=== PATIENT | male | born 1985 | race Two or more races ===

== ENCOUNTER 2017-10-24 21:57 | Inpatient (IN) | payer SELFPAY ==
[2017-10-24 22:04] VITALS: BMI 21.1
--- NOTE | 2017-10-24 22:16 | HP ---
COWS - Scale Resting Pulse: 0= [place] 80 or Below Sweatin=Flushed/Facial Moisture Restless Observation: 1= Difficult to Sit Still Pupil Size: 1= Pupils >than Normal Bone or Joint Aches: 2= Severe Diffuse Aches Runny Nose/ Eye Tearin= Runny Nose/Eyes GI Upset > 30mins: 1= Stomach Cramp Tremor Observation: 4= Gross Tremor/Twitching Yawning Observation: 1= 1-2x During Session Anxiety or Irritability: 4=Extreme Anxiety Goose Flesh Skin: 3=Piloerection COWS Score: 21 CIWA Score - CIWA Score Nausea/Vomitin-No Nausea/No Vomiting Muscle Tremors: 4-Moderate,w/Arms Extend Anxiety: 4-Mod. Anxious/Guarded Agitation: 4-Moderately Restless Paroxysmal Sweats: 2 Orientation: 0-Oriented Tacttile Disturbances: 0-None Auditory Disturbances: 0-None Visual Disturbances: 0-None Headache: 4-Moderately Severe CIWA-Ar Total Score: 18 Admission ROS S - HPI Chief Complaint: Alcohol and heroin withdrawal symptoms Allergies/Adverse Reactions: Allergies Allergy/AdvReac Type Severity Reaction Status Date / Time No Known Allergies Allergy Verified 10/24/17 22:11 History of Present Illness: 32 years old male with a long history of alcohol and 2 years history of heroin dependence is admitted to detox. Patient reports previous detox treatment and 6 months of sobriety. He denies past medical history and suicidal ideation at this time. Patient states , " My goal is to achieve long-term sobriety." Exam Limitations: No Limitations - Ebola screening Have you traveled outside of the country in the last 21 days: No Have you had contact with anyone from an Ebola affected area: No Have you been sick,other than usual withdrawal symptoms: No Do you have a fever: No - Review of Systems Constitutional: Chills, Diaphoresis, Malaise, Night Sweats, Changes in sleep EENT: reports: Nose Congestion, Sinus Pressure Respiratory: reports: Productive cough (white phlegm) Cardiac: reports: No Symptoms Reported GI: reports: Poor Appetite, Poor Fluid Intake, Abdominal cramping : reports: No Symptoms Reported Musculoskeletal: reports: Back Pain, Muscle Pain, Muscle Weakness, Neck Pain Integumentary: reports: Dryness, Flushing, Sweating, Other (bilateral hand tatoo ) Neuro: reports: Headache, Tingling, Tremors Endocrine: reports: No Symptoms Reported Hematology: reports: No Symptoms Reported Psychiatric: reports: Mood/Affect Appropiate, Orientated x3, Anxious, Depressed Other Systems: Reviewed and Negative Patient History - Patient Medical History Hx Anemia: No Hx Asthma: No Hx Chronic Obstructive Pulmonary Disease (COPD): No Hx Cancer: No Hx Cardiac Disorders: No Hx Congestive Heart Failure: No Hx Hypertension: No Hx Hypercholesterolemia: No Hx Pacemaker: No HX Cerebrovascular Accident: No Hx Seizures: No Hx Dementia: No Hx Diabetes: No Hx Gastrointestinal Disorders: No Hx Liver Disease: No Hx Genitourinary Disorders: No Hx Sexually Transmitted Disorders: No Hx Renal Disease (ESRD): No Hx Thyroid Disease: No Hx Human Immunodeficiency Virus (HIV): No (Negative 2015) Hx Hepatitis C: No (Negative 2016) Hx Depression: Yes Hx Suicide Attempt: No (Denies suicidal ideation) Hx Bipolar Disorder: No Hx Schizophrenia: No - Patient Surgical History Past Surgical History: No - PPD History Previous Implant?: No Implanted On Prior R Admission?: No PPD to be Administered?: Yes - Reproductive History Patient is a Female of Child Bearing Age (11 -55 yrs old): No (Male) - Smoking Cessation Smoking history: Current every day smoker Have you smoked in the past 12 months: Yes Aproximately how many cigarettes per day: 20 Hx Chewing Tobacco Use: No Initiated information on smoking cessation: Yes 'Breaking Loose' booklet given: 10/24/17 - Substance & Tx. History Hx Alcohol Use: Yes (Vodka) Hx Substance Use: Yes (Heroin, Marijuana) Substance Use Type: Alcohol, Heroin, Marijuana Hx Substance Use Treatment: Yes ([place], [place] 05/2017) - Substances Abused Alcohol Route: Oral Frequency: 3-6 times per week Amount used: Vodka 1-8 pint Age of first use: 16 Date of Last Use: 10/23/17 Heroin Route: Injection Frequency: Daily Amount used: 10 bags Age of first use: 29 Date of Last Use: 10/23/17 Marijuana/Hashish Route: Smoking Frequency: Daily Amount used: 1-8 oz. Age of first use: 16 Date of Last Use: 10/23/17 Family Disease History - Family Disease History Family History: Denies Admission Physical Exam BHS - Vital Signs Vital Signs: Vital Signs - 24 hr 10/24/17 22:02 Temperature 98.0 F Pulse Rate 76 Respiratory 18 Rate Blood Pressure 160/90 - Physical General Appearance: Yes: Moderate Distress, Tremorous, Irritable, Sweating, Anxious HEENTM: Yes: Normal ENT Inspection, Normal Voice, KASHIF, Other (right nose bruises and redness) Respiratory: Yes: Lungs Clear, No Respiratory Distress Neck: Yes: Supple, Other (left side tatoo) Breast: Yes: Breast Exam Deferred Cardiology: Yes: Regular Rhythm, Regular Rate, S1, S2, Other (tatoo toupper chest wall) Abdominal: Yes: Normal Bowel Sounds, Soft Genitourinary: Yes: Within Normal Limits Back: Yes: Within Normal Limits Musculoskeletal: Yes: Back pain, Muscle Pain, Muscle weakness Extremities: Yes: Tremors, Other (bilateral hand tatoos) Neurological: Yes: Fully Oriented, Alert, Normal Response Integumentary: Yes: Dry, Track Hernandez (both hands) Lymphatic: Yes: Within Normal Limits - Diagnostic (1) Opioid dependence with withdrawal Current Visit: Yes Status: Chronic (2) Alcohol dependence with uncomplicated withdrawal Current Visit: Yes Status: Chronic (3) Cannabis dependence Current Visit: Yes Status: Chronic (4) Nicotine dependence Current Visit: Yes Status: Chronic (5) Depression Current Visit: Yes Status: Chronic Cleared for Admission [facility] - Detox or Rehab [facility] Level of Care: Medically Managed Detox Regimen/Protocol: Methadone/Librium [facility] Breath Alcohol Content Breath Alcohol Content: 0 Urine Drug Screen - Results Drug Screen Negative: No Urine Drug Screen Results: THC-Marijuana, OPI-Opiates
[2017-10-24] MEDS ORDERED: MAGNESIUM CITRATE 300 ML BOTTLE PO PRN (22:38)
[2017-10-24] MEDS ORDERED: MAGNESIUM HYDROX 2400MG/30ML ORAL SUSPENSION 30 ML CUP PO PRN (22:38)
[2017-10-24] MEDS ORDERED: P-EPHED 60MG/TRIPROLIDI 2.5MG TABLET PO PRN (22:38)
[2017-10-24] MEDS ORDERED: METHADONE HCL 10 MG TABLET (FOR DETOX USE ONLY) PO ONE ×2 (22:38→23:00)
[2017-10-24] MEDS ORDERED: chlordiazePOXIDE HCL 25 MG CAPSULE PO PRN (22:38)
[2017-10-24] MEDS ORDERED: NICOTINE POLACRILEX 2 MG GUM BC PRN (22:38)
[2017-10-24] MEDS ORDERED: hydrOXYzine PAMOATE 50 MG CAPSULE (FP) PO PRN (22:38)
[2017-10-24] MEDS ORDERED: guaiFENesin/D-METHORPHAN HB 10 ML UNIT-DOSE CUPS PO PRN (22:38)
[2017-10-24] MEDS ORDERED: MAG HYDROX/AL HYDROX/SIMETH 30 ML UNIT-DOSE CUP PO PRN (22:38)
[2017-10-24] MEDS ORDERED: IBUPROFEN 400 MG TABLET (FP) PO PRN (22:38)
[2017-10-24] MEDS ORDERED: MENTHOL/PHENOL 1 EACH UD MM PRN (22:38)
[2017-10-24] MEDS ORDERED: LOPERAMIDE HCL 2 MG CAPSULE PO PRN (22:38)
[2017-10-24] MEDS ORDERED: ACETAMINOPHEN 325 MG TABLET (FP) PO PRN (22:38)
[2017-10-24] MEDS: chlordiazePOXIDE HCL 25 MG CAPSULE PO SCH (23:48)
[2017-10-25 01:59] LABS: URINE APPEARANCE SLCLOUDY; URINE BILIRUBIN NEGATIVE (NEGATIVE); URINE BLOOD NEGATIVE (NEGATIVE); URINE COLOR LTYELLOW; URINE GLUCOSE (UA) NEGATIVE (NEGATIVE); URINE KETONE NEGATIVE (NEGATIVE); URINE NITRITE NEGATIVE (NEGATIVE); URINE PROTEIN NEGATIVE (NEGATIVE)
[2017-10-25] MEDS: chlordiazePOXIDE HCL 25 MG CAPSULE PO SCH ×2 (05:59→10:20)
[2017-10-25] MEDS ORDERED: METHADONE HCL 10 MG TABLET (FOR DETOX USE ONLY) PO SCH (10:00)
[2017-10-25 10:11] LABS: MCH 28.9 pg (25.7-33.7); MCHC 32.4 g/dl (32.0-35.9); MEAN CELL VOLUME 89.4 fl (80-96); MEAN PLT VOLUME 9.3 fl (7.5-11.1); PLATELET COUNT 279 K/MM3 (134-434); RDW 14.4 % (11.9-15.9)
[2017-10-25] MEDS: PRENATAL VITAMINS W/ FOLIC ACID TABLET (FP) PO SCH (10:20)
[2017-10-25] MEDS: NICOTINE 14 MG/24 HOURS TOPICAL PATCH TD SCH (10:21)
[2017-10-25 10:35] LABS: SICKLE CELL SCREEN NEGATIVE (NEGATIVE)
[2017-10-25 10:52] LABS: ALBUMIN 3.6 g/dl (3.4-5.0); ALK PHOS 76 U/L (45-117); ANION GAP 8 (8-16); BILIRUBIN,TOTAL 0.3 mg/dL (0.2-1.0); CALCIUM 8.5 mg/dL (8.5-10.1); CO2 26 mmol/L (21-32); CREATININE 1.3 mg/dL (0.7-1.3); GLUCOSE,RANDOM 93 mg/dL (74-106); SGOT/AST 16 U/L (15-37); SGPT/ALT 17 U/L (12-78); TOT PROT 7.2 g/dl (6.4-8.2)
--- NOTE | 2017-10-25 11:06 | PN ---
[facility] CIWA - CIWA Score Nausea/Vomitin Muscle Tremors: 3 Anxiety: 3 Agitation: 2 Paroxysmal Sweats: 1-Minimal Palms Moist Orientation: 0-Oriented Tacttile Disturbances: 1-Very Mild Itch/Numbness Auditory Disturbances: 1-Very Mild Visual Disturbances: 0-None Headache: 2-Mild CIWA-Ar Total Score: 16 BHS COWS - Scale Resting Pulse: 0= [place] 80 or Below Sweatin= Chills/Flushing Restless Observation: 3= Extraneous Movement Pupil Size: 1= Pupils >than Normal Bone or Joint Aches: 2= Severe Diffuse Aches Runny Nose/ Eye Tearin= Runny Nose/Eyes GI Upset > 30mins: 2= Nausea/Diarrhea Tremor Observation of Outstretched Hands: 2= Slight Tremor Visible Yawning Observation: 1= 1-2x During Session Anxiety or Irritability: 2=Irritable/Anxious Goose Flesh Skin: 0=Smooth Skin COWS Score: 16 [facility] Progress Note (SOAP) Subjective: alert,irritable,anxious,interrupted sleep,pain in the body and back,tremor, irritation right facial area Objective: 10/25/17 11:04 Vital Signs Temperature 98.2 F 10/25/17 06:02 Pulse Rate 63 10/25/17 06:02 Respiratory Rate 16 10/25/17 06:02 Blood Pressure 133/76 10/25/17 06:02 O2 Sat by Pulse Oximetry (%) ekg nsr,normal ecg Laboratory Last Values WBC 5.0 K/mm3 (4.0-10.0) 10/25/17 07:45 RBC 4.26 M/mm3 (4.00-5.60) 10/25/17 07:45 Hgb 12.3 GM/dL (11.7-16.9) 10/25/17 07:45 Hct 38.0 % (35.4-49) 10/25/17 07:45 MCV 89.4 fl (80-96) 10/25/17 07:45 MCH 28.9 pg (25.7-33.7) 10/25/17 07:45 MCHC 32.4 g/dl (32.0-35.9) 10/25/17 07:45 RDW 14.4 % (11.9-15.9) 10/25/17 07:45 Plt Count 279 K/MM3 (134-434) 10/25/17 07:45 MPV 9.3 fl (7.5-11.1) 10/25/17 07:45 Sickle Cell Screen Negative (NEGATIVE) 10/25/17 07:45 Sodium 137 mmol/L (136-145) 10/25/17 07:45 Potassium 4.1 mmol/L (3.5-5.1) 10/25/17 07:45 Chloride 103 mmol/L (98-107) 10/25/17 07:45 Carbon Dioxide 26 mmol/L (21-32) 10/25/17 07:45 Anion Gap 8 (8-16) 10/25/17 07:45 BUN 6 mg/dL (7-18) L 10/25/17 07:45 Creatinine 1.3 mg/dL (0.7-1.3) 10/25/17 07:45 Creat Clearance w eGFR > 60 (>60) 10/25/17 07:45 Random Glucose 93 mg/dL (74-106) 10/25/17 07:45 Calcium 8.5 mg/dL (8.5-10.1) 10/25/17 07:45 Total Bilirubin 0.3 mg/dL (0.2-1.0) 10/25/17 07:45 AST 16 U/L (15-37) 10/25/17 07:45 ALT 17 U/L (12-78) 10/25/17 07:45 Alkaline Phosphatase 76 U/L (45-117) 10/25/17 07:45 Total Protein 7.2 g/dl (6.4-8.2) 10/25/17 07:45 Albumin 3.6 g/dl (3.4-5.0) 10/25/17 07:45 Urine Color Ltyellow 10/24/17 23:43 Urine Appearance Slcloudy 10/24/17 23:43 Urine pH 7.0 (5.0-8.0) 10/24/17 23:43 Ur Specific [place] 1.005 (1.001-1.035) 10/24/17 23:43 Urine Protein Negative (NEGATIVE) 10/24/17 23:43 Urine Glucose (UA) Negative (NEGATIVE) 10/24/17 23:43 Urine Ketones Negative (NEGATIVE) 10/24/17 23:43 Urine Blood Negative (NEGATIVE) 10/24/17 23:43 Urine Nitrite Negative (NEGATIVE) 10/24/17 23:43 Urine Bilirubin Negative (NEGATIVE) 10/24/17 23:43 Urine Urobilinogen 2.0 mg/dL (0.2-1.0) 10/24/17 23:43 10/25/17 11:06 labs pending Assessment: 10/25/17 11:06 withdrawal symptom Plan: continue detox,patient requested valium regimen instead of librium
[2017-10-25] MEDS ORDERED: CYCLOBENZAPRINE HCL 10 MG TABLET (FP) PO PRN (11:12)
[2017-10-25] MEDS ORDERED: BACITRACIN 15 GM TUBE TOPICAL OINTMENT TP SCH (11:15)
[2017-10-25 11:31] LABS: URINE LEUK ESTERASE Negative (NEGATIVE)
[2017-10-25] MEDS: diazePAM 5 MG TABLET PO PRN ×2 (12:20→17:48)
[2017-10-25] MEDS ORDERED: diazePAM 5 MG TABLET PO ONE (13:00)
--- NOTE | 2017-10-25 14:08 | CONSULT ---
[facility] Psychiatric Consult - Data Date of interview: 10/25/17 Admission source: [facility] Identifying data: First admission to [facility] for this 32 y/o AA male seeking detox treatment on for heroin,marihuana and alcohol dependence.Patient is single,father of one,homeless,unemployed and deprived of financial assistance. Substance Abuse History: Patient admits to active use of cannabis,heroin and alcohol.See [facility] report for details : Smoking history: Current every day smoker. Have you smoked in the past 12 months: Yes. Aproximately how many cigarettes per day: 20. Hx Chewing Tobacco Use: No. Initiated information on smoking cessation: Yes. 'Breaking Loose' booklet given: 10/24/17. - Substance & Tx. History. Hx Alcohol Use: Yes (Vodka). Hx Substance Use: Yes (Heroin, Marijuana). Substance Use Type: Alcohol, Heroin, Marijuana. Hx Substance Use Treatment: Yes ([place], [place] 05/2017). - Substances Abused. Alcohol. Route: Oral. Frequency: 3-6 times per week. Amount used : Vodka 1-8 pint. Age of first use: 16. Date of Last Use: 10/23/17. Heroin. Route: Injection. Frequency: Daily. Amount used: 10 bags. Age of first use: 29. Date of Last Use: 10/23/17. Marijuana/Hashish. Route: Smoking. Frequency: Daily. Amount used: 1-8 oz. Age of first use: 16. Date of Last Use: 10/23/17 Medical History: Patient endorses good general health. Psychiatric History: No reported history of psychiatric hospitalizations.Used to be prescribed seroquel by a general practitioner in [place].Diagnosed with MDD and Anxiety Disorder.No OPD care (just relocated to [facility]).Mr Santos denies history of suicide attempts. Physical/Sexual Abuse/Trauma History: Patient denies. Additional Comment: Urine Drug Screen Results: THC-Marijuana, OPI-Opiates.Noted. Mental Status Exam - Mental Status Exam Alert and Oriented to: Time, Place, Person Cognitive Function: Good Patient Appearance: Well Groomed (covered with tattoos) Mood: Hopeful, Euthymic Affect: Normal Range Patient Behavior: Fatigued, Appropriate, Cooperative Speech Pattern: Clear Voice Loudness: Normal Thought Process: Goal Oriented Thought Disorder: Not Present Hallucinations: Denies Suicidal Ideation: Denies Homicidal Ideation: Denies Insight/Judgement: Poor Sleep: Poorly, Difficulty falling asleep (wants seroquel) Appetite: Good Muscle strength/Tone: Normal Gait/Station: Normal Psychiatric Findings - Problem List ([place] 1, 2,3) (1) Opioid dependence with withdrawal Current Visit: Yes Status: Acute (2) Alcohol dependence with uncomplicated withdrawal Current Visit: Yes Status: Acute (3) Cannabis dependence Current Visit: Yes Status: Acute (4) Nicotine dependence Current Visit: Yes Status: Acute (5) Substance induced mood disorder Current Visit: Yes Status: Acute (6) Insomnia Current Visit: Yes Status: Acute - Initial Treatment Plan Initial Treatment Plan: Psychoeducation.Sleep hygiene.Detoxification.Seroquel 100 mg po hs.Side effects/benefits discussed with the patient.He agrees with the patient.Observation.
[2017-10-25] MEDS: diazePAM 5 MG TABLET PO SCH ×2 (14:24→22:23)
[2017-10-25] MEDS: THIAMINE HCL 100 MG TABLET (FP) PO SCH (22:22)
[2017-10-25] MEDS: cloNIDine HCL 0.1 MG TABLET PO SCH (22:22)
[2017-10-25] MEDS: QUEtiapine FUMARATE 100 MG TABLET (FP) PO SCH (22:23)
[2017-10-25] MEDS: BACITRACIN 0.9 GM PACKET TP SCH (22:23)
[2017-10-25] MEDS ORDERED: chlordiazePOXIDE HCL 25 MG CAPSULE PO SCH (23:00)
[2017-10-26] MEDS: diazePAM 5 MG TABLET PO SCH ×3 (04:59→22:04)
--- NOTE | 2017-10-26 09:27 | PN ---
[facility] CIWA - CIWA Score Nausea/Vomitin Muscle Tremors: 3 Anxiety: 3 Agitation: 2 Paroxysmal Sweats: 1-Minimal Palms Moist Orientation: 0-Oriented Tacttile Disturbances: 1-Very Mild Itch/Numbness Auditory Disturbances: 1-Very Mild Visual Disturbances: 0-None Headache: 2-Mild CIWA-Ar Total Score: 16 BHS COWS - Scale Resting Pulse: 1= [place] 81-100 Sweatin= Chills/Flushing Restless Observation: 3= Extraneous Movement Pupil Size: 1= Pupils >than Normal Bone or Joint Aches: 2= Severe Diffuse Aches Runny Nose/ Eye Tearin= Runny Nose/Eyes GI Upset > 30mins: 3= Vomiting/Diarrhea Tremor Observation of Outstretched Hands: 2= Slight Tremor Visible Yawning Observation: 1= 1-2x During Session Anxiety or Irritability: 2=Irritable/Anxious Goose Flesh Skin: 0=Smooth Skin COWS Score: 18 S Progress Note (SOAP) Subjective: alert,irritable,anxious,interrupted sleep,tremor,pain in the body and back Objective: 10/26/17 09:25 Vital Signs Temperature 97.9 F 10/26/17 05:59 Pulse Rate 95 H 10/26/17 05:59 Respiratory Rate 20 10/26/17 05:59 Blood Pressure 124/80 10/26/17 05:59 O2 Sat by Pulse Oximetry (%) Laboratory Last Values WBC 5.0 K/mm3 (4.0-10.0) 10/25/17 07:45 RBC 4.26 M/mm3 (4.00-5.60) 10/25/17 07:45 Hgb 12.3 GM/dL (11.7-16.9) 10/25/17 07:45 Hct 38.0 % (35.4-49) 10/25/17 07:45 MCV 89.4 fl (80-96) 10/25/17 07:45 MCH 28.9 pg (25.7-33.7) 10/25/17 07:45 MCHC 32.4 g/dl (32.0-35.9) 10/25/17 07:45 RDW 14.4 % (11.9-15.9) 10/25/17 07:45 Plt Count 279 K/MM3 (134-434) 10/25/17 07:45 MPV 9.3 fl (7.5-11.1) 10/25/17 07:45 Manual Slide Review No Result Required. 10/25/17 07:45 Sickle Cell Screen Negative (NEGATIVE) 10/25/17 07:45 Sodium 137 mmol/L (136-145) 10/25/17 07:45 Potassium 4.1 mmol/L (3.5-5.1) 10/25/17 07:45 Chloride 103 mmol/L (98-107) 10/25/17 07:45 Carbon Dioxide 26 mmol/L (21-32) 10/25/17 07:45 Anion Gap 8 (8-16) 10/25/17 07:45 BUN 6 mg/dL (7-18) L 10/25/17 07:45 Creatinine 1.3 mg/dL (0.7-1.3) 10/25/17 07:45 Creat Clearance w eGFR > 60 (>60) 10/25/17 07:45 Random Glucose 93 mg/dL (74-106) 10/25/17 07:45 Calcium 8.5 mg/dL (8.5-10.1) 10/25/17 07:45 Total Bilirubin 0.3 mg/dL (0.2-1.0) 10/25/17 07:45 AST 16 U/L (15-37) 10/25/17 07:45 ALT 17 U/L (12-78) 10/25/17 07:45 Alkaline Phosphatase 76 U/L (45-117) 10/25/17 07:45 Total Protein 7.2 g/dl (6.4-8.2) 10/25/17 07:45 Albumin 3.6 g/dl (3.4-5.0) 10/25/17 07:45 Urine Color Ltyellow 10/24/17 23:43 Urine Appearance Slcloudy 10/24/17 23:43 Urine pH 7.0 (5.0-8.0) 10/24/17 23:43 Ur Specific [place] 1.005 (1.001-1.035) 10/24/17 23:43 Urine Protein Negative (NEGATIVE) 10/24/17 23:43 Urine Glucose (UA) Negative (NEGATIVE) 10/24/17 23:43 Urine Ketones Negative (NEGATIVE) 10/24/17 23:43 Urine Blood Negative (NEGATIVE) 10/24/17 23:43 Urine Nitrite Negative (NEGATIVE) 10/24/17 23:43 Urine Bilirubin Negative (NEGATIVE) 10/24/17 23:43 Urine Urobilinogen 2.0 mg/dL (0.2-1.0) 10/24/17 23:43 Ur Leukocyte Esterase Negative (NEGATIVE) 10/24/17 23:43 RPR Titer Nonreactive (NONREACTIVE) 10/25/17 07:45 Assessment: 10/26/17 09:26 withdrawal symptom Plan: continue detox
[2017-10-26] MEDS ORDERED: METHADONE HCL 5 MG TABLET (FOR DETOX USE ONLY) PO SCH (10:00)
[2017-10-26] MEDS: diazePAM 5 MG TABLET PO PRN (10:14)
[2017-10-26] MEDS: cloNIDine HCL 0.1 MG TABLET PO SCH ×2 (10:14→22:05)
[2017-10-26] MEDS: PRENATAL VITAMINS W/ FOLIC ACID TABLET (FP) PO SCH (10:14)
[2017-10-26] MEDS: NICOTINE 14 MG/24 HOURS TOPICAL PATCH TD SCH (10:15)
[2017-10-26] MEDS: BACITRACIN 0.9 GM PACKET TP SCH ×2 (10:16→22:04)
[2017-10-26] MEDS: QUEtiapine FUMARATE 100 MG TABLET (FP) PO SCH (22:04)
[2017-10-26] MEDS: THIAMINE HCL 100 MG TABLET (FP) PO SCH (22:04)
[2017-10-26] MEDS ORDERED: chlordiazePOXIDE 5 MG CAPSULE PO SCH (23:00)
[2017-10-27 09:26] VITALS: BP 136/89; PULSE 86; TEMP 99.3
[2017-10-27] MEDS ORDERED: diazePAM 5 MG TABLET PO SCH (10:00)
--- NOTE | 2017-10-27 10:15 | PN ---
[facility] Progress Note Note: pt was harassing and verbally threatening another patient (female). pt was told by medical and counselor that this behavior is unacceptable however to have him complete his detox he will be sent to an all male unit and pt agreed. pt was sent down to [facility] for completion.
--- NOTE | 2017-10-27 10:16 | DS ---
[facility] Detox Discharge Summary Admission Date: 10/24/17 Discharge Date: 10/27/17 - History Present History: Alcohol Dependence, Cannabis Dependence, Opioid Dependence - Physical Exam Results Vital Signs: Vital Signs Temperature 99.3 F 10/27/17 09:25 Pulse Rate 86 10/27/17 09:25 Respiratory Rate 18 10/27/17 09:25 Blood Pressure 136/89 10/27/17 09:25 O2 Sat by Pulse Oximetry (%) - Medication Discharge Medications: Ambulatory Orders Quetiapine Fumarate [Seroquel -] 100 mg PO BID 10/24/17 Quetiapine Fumarate [Seroquel -] 200 mg PO HS #30 tab 10/25/17 - AMA Did Patient Leave Against Medical Advice: No (pt sent to [facility])
[2017-10-27] MEDS ORDERED: chlordiazePOXIDE HCL 10 MG CAPSULE PO SCH (23:00)
--- NOTE | 2017-10-28 01:04 | EKG ---
Test Reason : Blood Pressure : / mmHG Vent. Rate : 071 BPM Atrial Rate : 071 BPM P-R Int : 174 ms QRS Dur : 088 ms QT Int : 372 ms P-R-T Axes : 060 046 044 degrees QTc Int : 404 ms NORMAL SINUS RHYTHM NORMAL ECG NO PREVIOUS ECGS AVAILABLE Confirmed by JIM HANEY MD ([id number]) on 10/28/2017 1:04:08 AM Referred By: Confirmed By:JIM HANEY MD
[2017-10-28] MEDS ORDERED: METHADONE HCL 10 MG TABLET (FOR DETOX USE ONLY) PO SCH (10:00)
[2017-10-29] MEDS ORDERED: METHADONE HCL 5 MG TABLET (FOR DETOX USE ONLY) PO SCH (06:00)
[2017-10-29] MEDS ORDERED: diazePAM 5 MG TABLET PO SCH (10:00)
== END 2017-10-27 09:53 | disposition left against medical advice (07) | DRG 770 ==
LOC: YASAS 21:57 → Y6N 22:46
PROVIDERS: ADMIT Internal Medicine; ATTEND Internal Medicine
PROC: HZ2ZZZZ Detoxification Services for Substance Abuse Treatment (ICD-10-PCS; principal; 2017-10-24)
DX: F11.23 Opioid dependence with withdrawal (principal); F10.230 Alcohol dependence with withdrawal, uncomplicated; F12.20 Cannabis dependence, uncomplicated; F17.210 Nicotine dependence, cigarettes, uncomplicated; F32.9 Major depressive disorder, single episode, unspecified; F19.24 Other psychoactive substance dependence with psychoactive substance-induced mood disorder; G47.00 Insomnia, unspecified
CPT/HCPCS: 36415; 80053; 81003; 85027; 85660; 86593; 93005; 93010

== ENCOUNTER 2018-11-02 11:58 | Inpatient (IN) | payer OTHER ==
[2018-11-02 15:59] VITALS: BMI 20.7
--- NOTE | 2018-11-02 17:00 | HP ---
COWS - Scale Resting Pulse: 1= [place] 81-100 Sweatin= Chills/Flushing Restless Observation: 1= Difficult to Sit Still Pupil Size: 2= Moderately Dilated Bone or Joint Aches: 2= Severe Diffuse Aches Runny Nose/ Eye Tearin= Nasal Congestion GI Upset > 30mins: 3= Vomiting/Diarrhea Tremor Observation: 2= Slight Tremor Visible Yawning Observation: 0= None Anxiety or Irritability: 2=Irritable/Anxious Goose Flesh Skin: 0=Smooth Skin COWS Score: 15 CIWA Score Nausea/Vomitin Muscle Tremors: 2 Anxiety: 2 Agitation: 2 Paroxysmal Sweats: 2 Orientation: 0-Oriented Tacttile Disturbances: 0-None Auditory Disturbances: 0-None Visual Disturbances: 0-None Headache: 2-Mild CIWA-Ar Total Score: 13 - Admission Criteria [facility] Guidelines: Admission for Medically Managed Detox: Requires at least one of the followin. CIWA greater than 12 2. Seizures within the past 24 hours 3. Delirium tremens within the past 24 hours 4. Hallucinations within the past 24 hours 5. Acute intervention needed for co occurring medical disorder 6. Acute intervention needed for co occurring psychiatric disorder 7. Severe withdrawal that cannot be handled at a lower level of care (continued vomiting, continued diarrhea, abnormal vital signs) requiring intravenous medication and/or fluids 8. Admission ROS [facility] Chief Complaint: PATIENT PRESENTS FOR ETOH/HEROIN WITHDRAWAL SX. Allergies/Adverse Reactions: Allergies Allergy/AdvReac Type Severity Reaction Status Date / Time No Known Allergies Allergy Verified 11/02/18 16:44 History of Present Illness: PATIENT PRESENTS FOR ETOH/HEROIN WITHDRAWAL SYMPTOMS. PATIENT STARTED DRINKING AT AGE 11, DRINKS UP TO 12 PACK OF BEER AND 3 MIXED DRINKS DAILY, LAST DRINK THIS AM. DRINKS FIRST UPON AWAKENING TO [employer]ES. PATIENT ALSO INJECTS 10 BAGS OF HEROIN DAILY, LAST TIME HE INJECTED WAS THIS MORNING. PATIENT BEGAN INJECTING HEROIN AT AGE 28. DENIES H/O SEIZURES, FALLS AND OVERDOSE. HAS HAD ADMISSION TO DETOX HERE AT [facility], LAST ADMISSION ONE YEAR AGO. PATIENT STATES HE USES CLEAN NEEDLES. PMH INCLUDES TOBACCO USE, 1PPD. DENIES SI/HI AND SUICIDE ATTEMPTS. - Ebola screening Have you traveled outside of the country in the last 21 days: No Have you had contact with anyone from an Ebola affected area: No Have you been sick,other than usual withdrawal symptoms: No Do you have a fever: No - Review of Systems Constitutional: Chills, Night Sweats, Changes in sleep EENT: reports: Nose Congestion Respiratory: reports: No Symptoms reported Cardiac: reports: No Symptoms Reported GI: reports: Nausea, Poor Appetite, Poor Fluid Intake, Vomiting, Abdominal cramping : reports: Other (RETENTION) Musculoskeletal: reports: Back Pain, Muscle Pain Integumentary: reports: Sweating Neuro: reports: Headache, Tremors Endocrine: reports: Unexplained Weight Loss Hematology: reports: No Symptoms Reported Psychiatric: reports: Orientated x3, Anxious Patient History - Patient Medical History Hx Anemia: No Hx Asthma: No Hx Chronic Obstructive Pulmonary Disease (COPD): No Hx Cancer: No Hx Cardiac Disorders: No Hx Congestive Heart Failure: No Hx Hypertension: No Hx Hypercholesterolemia: No Hx Pacemaker: No HX Cerebrovascular Accident: No Hx Seizures: No Hx Dementia: No Hx Diabetes: No Hx Gastrointestinal Disorders: No Hx Liver Disease: No Hx Genitourinary Disorders: No Hx Sexually Transmitted Disorders: No Hx Renal Disease (ESRD): No Hx Thyroid Disease: No Hx Human Immunodeficiency Virus (HIV): No (Negative 2015) Hx Hepatitis C: No (Negative 2016) Hx Depression: No Hx Suicide Attempt: No (Denies suicidal ideation) Hx Bipolar Disorder: No Hx Schizophrenia: No - Patient Surgical History Past Surgical History: No Hx Neurologic Surgery: No Hx Cataract Extraction: No Hx Cardiac Surgery: No Hx Lung Surgery: No Hx Breast Surgery: No Hx Breast Biopsy: No Hx Abdominal Surgery: No Hx Appendectomy: No Hx Cholecystectomy: No Hx Genitourinary Surgery: No Hx Orthopedic Surgery: No Anesthesia Reaction: No - PPD History Previous Implant?: Yes Documented Results: Negative w/proof Date: 10/26/17 PPD to be Administered?: Yes - Smoking Cessation Smoking history: Current every day smoker Have you smoked in the past 12 months: Yes Aproximately how many cigarettes per day: 20 Hx Chewing Tobacco Use: No Initiated information on smoking cessation: Yes 'Breaking Loose' booklet given: 11/02/18 - Substances Abused Heroin Route: Injection Frequency: Daily Amount used: 10 BAGS Age of first use: 28 Date of Last Use: 11/02/18 Alcohol Route: Oral Frequency: Daily Amount used: LIQUOR- 1 PINT, BEER- 12 PACK Age of first use: 11 Date of Last Use: 11/02/18 Family Disease History - Family Disease History Family History: Denies Admission Physical Exam [facility] - Vital Signs Vital Signs: Vital Signs - 24 hr 11/02/18 15:57 Temperature 98.2 F Pulse Rate 90 Respiratory 17 Rate Blood Pressure 140/95 - Physical General Appearance: Yes: Appropriately Dressed, Thin, Sweating, Anxious HEENTM: Yes: EOMI, Hearing grossly Normal, Normocephalic, Normal Voice, KASHIF, Pharynx Normal, Nasal Congestion Respiratory: Yes: Chest Non-Tender, Lungs Clear, Normal Breath Sounds, No Respiratory Distress, No Accessory Muscle Use Neck: Yes: No masses,lesions,Nodules, Supple, Trachea in good position Breast: Yes: Breast Exam Deferred Cardiology: Yes: Regular Rhythm, Regular Rate, S1, S2 Abdominal: Yes: Normal Bowel Sounds, Non Tender, Flat, Soft Genitourinary: Yes: Retention Back: Yes: Muscle Spasm Musculoskeletal: Yes: full range of Motion, Gait Steady, Back pain, Muscle Pain Extremities: Yes: Normal Inspection, Normal Range of Motion, Non-Tender, Tremors Neurological: Yes: supervisor area II-XII NML intact, Fully Oriented, Alert, Motor Strength 5/5, Normal Response, Other (ANXIOUS) Integumentary: Yes: Normal Color, Warm, Moist, Track Hernandez Cleared for Admission [facility] - Detox or Rehab [facility] Level of Care: Medically Managed Detox Regimen/Protocol: Methadone/Librium [facility] Breath Alcohol Content Breath Alcohol Content: 0 Urine Drug Screen - Results Drug Screen Negative: No Urine Drug Screen Results: OPI-Opiates
[2018-11-02] MEDS ORDERED: P-EPHED 60MG/TRIPROLIDI 2.5MG TABLET PO PRN (17:07)
[2018-11-02] MEDS ORDERED: LOPERAMIDE HCL 2 MG CAPSULE PO PRN (17:07)
[2018-11-02] MEDS ORDERED: guaiFENesin/D-METHORPHAN HB 10 ML UNIT-DOSE CUPS PO PRN (17:07)
[2018-11-02] MEDS ORDERED: MAGNESIUM HYDROX 2400MG/30ML ORAL SUSPENSION 30 ML CUP PO PRN (17:07)
[2018-11-02] MEDS ORDERED: NICOTINE POLACRILEX 2 MG GUM BC PRN (17:07)
[2018-11-02] MEDS ORDERED: MENTHOL/PHENOL 1 EACH UD MM PRN (17:07)
[2018-11-02] MEDS ORDERED: MAGNESIUM CITRATE 300 ML BOTTLE PO PRN (17:07)
[2018-11-02] MEDS ORDERED: MAG HYDROX/AL HYDROX/SIMETH 30 ML UNIT-DOSE CUP PO PRN (17:07)
[2018-11-02] MEDS ORDERED: IBUPROFEN 400 MG TABLET (FP) PO PRN (17:07)
[2018-11-02] MEDS ORDERED: METHADONE HCL 10 MG TABLET (FOR DETOX USE ONLY) PO ONE ×2 (18:15→23:00)
[2018-11-02] MEDS: chlordiazePOXIDE HCL 25 MG CAPSULE PO PRN (19:05)
[2018-11-02] MEDS: ACETAMINOPHEN 325 MG TABLET (FP) PO PRN (19:11)
[2018-11-02] MEDS: hydrOXYzine PAMOATE 50 MG CAPSULE (FP) PO PRN (21:19)
[2018-11-02] MEDS ORDERED: MELATONIN 5 MG TABLETS PO PRN (22:00)
[2018-11-02] MEDS: chlordiazePOXIDE HCL 25 MG CAPSULE PO SCH (22:16)
[2018-11-02] MEDS: THIAMINE HCL 100 MG TABLET (FP) PO SCH (22:16)
[2018-11-02 23:17] LABS: URINE APPEARANCE CLEAR; URINE BILIRUBIN NEGATIVE (<2.0 mg/dL); URINE COLOR DKYELLOW; URINE GLUCOSE (UA) NEGATIVE (NEGATIVE); URINE KETONE NEGATIVE (NEGATIVE); URINE LEUK ESTERASE NEGATIVE (NEGATIVE); URINE NITRITE NEGATIVE (NEGATIVE); URINE PROTEIN 1+ (NEGATIVE)
[2018-11-02 23:20] LABS: EPI CELLS RARE /HPF (FEW); URINE HYALINE CAST 16 /lpf; URINE MUCUS MANY
[2018-11-03] MEDS: chlordiazePOXIDE HCL 25 MG CAPSULE PO SCH ×4 (05:12→22:09)
[2018-11-03 09:52] LABS: HEMOGLOBIN 12.1 GM/dL (11.7-16.9); MCH 29.9 pg (25.7-33.7); MCHC 32.8 g/dl (32.0-35.9); MEAN CELL VOLUME 91.2 fl (80-96); MEAN PLT VOLUME 9.2 fl (7.5-11.1); PLATELET COUNT 241 K/MM3 (134-434); RBC 4.05 M/mm3 (4.00-5.60); WHITE BLOOD COUNT 4.3 K/mm3 (4.0-10.0)
[2018-11-03] MEDS: PRENATAL VITAMINS W/ FOLIC ACID TABLET (FP) PO SCH (09:58)
[2018-11-03] MEDS: NICOTINE 21 MG/24 HOURS TOPICAL PATCH TD SCH (09:59)
[2018-11-03] MEDS ORDERED: METHADONE HCL 10 MG TABLET (FOR DETOX USE ONLY) PO SCH (10:00)
[2018-11-03 10:28] LABS: ALBUMIN 3.6 g/dl (3.4-5.0); ALK PHOS 55 U/L (45-117); ANION GAP 11 MMOL/L (8-16); BILIRUBIN,TOTAL 0.2 mg/dL (0.2-1); BLOOD UREA NITROGEN 16 mg/dL (7-18); CALCIUM 8.3 mg/dL (8.5-10.1); CHLORIDE 100 mmol/L (98-107); CO2 26 mmol/L (21-32); CREATININE 1.1 mg/dL (0.55-1.3); GLUCOSE,RANDOM 92 mg/dL (74-106); POTASSIUM 4.2 mmol/L (3.5-5.1); SGOT/AST 14 U/L (15-37); SGPT/ALT 16 U/L (13-61); SODIUM 137 mmol/L (136-145); TOT PROT 6.7 g/dl (6.4-8.2)
[2018-11-03] MEDS ORDERED: cloNIDine HCL 0.1 MG TABLET PO PRN (12:24)
--- NOTE | 2018-11-03 12:24 | PN ---
S CIWA - CIWA Score Nausea/Vomitin-Mild Nausea/No Vomiting Muscle Tremors: 3 Anxiety: 2 Agitation: 2 Paroxysmal Sweats: 2 Orientation: 0-Oriented Headache: 0-None Present S COWS - Scale Resting Pulse: 0= [place] 80 or Below Sweatin= Chills/Flushing Restless Observation: 1= Difficult to Sit Still Pupil Size: 0= Normal to Room Light Bone or Joint Aches: 1= Mild Discomfort Runny Nose/ Eye Tearin= Nasal Congestion GI Upset > 30mins: 1= Stomach Cramp Tremor Observation of Outstretched Hands: 1= Tremor [place], Not Seen Yawning Observation: 0= None Anxiety or Irritability: 2=Irritable/Anxious Goose Flesh Skin: 0=Smooth Skin COWS Score: 8 [facility] Progress Note (SOAP) Subjective: Pt states he still feels like he is in withdrawal- anxious/agitated. O: Vital Signs - 24 hr 11/02/18 11/02/18 11/03/18 15:57 19:31 00:30 Temperature 98.2 F 98.0 F Pulse Rate 90 78 Respiratory 17 16 18 Rate Blood Pressure 140/95 134/85 11/03/18 11/03/18 11/03/18 03:30 06:16 10:38 Temperature 97.6 F 96.6 F L Pulse Rate 66 98 H Respiratory 18 18 18 Rate Blood Pressure 96/65 106/73 Laboratory Tests 11/02/18 11/03/18 11/03/18 21:34 07:00 07:00 WBC 4.3 RBC 4.05 Hgb 12.1 Hct 37.0 MCV 91.2 MCH 29.9 MCHC 32.8 RDW 14.0 Plt Count 241 MPV 9.2 Sodium 137 Potassium 4.2 Chloride 100 Carbon Dioxide 26 Anion Gap 11 BUN 16 Creatinine 1.1 Creat Clearance w eGFR > 60 Random Glucose 92 Calcium 8.3 L Total Bilirubin 0.2 AST 14 L ALT 16 Alkaline Phosphatase 55 Total Protein 6.7 Albumin 3.6 Urine Color Dkyellow Urine Appearance Clear Urine pH 5.0 D Ur Specific [place] 1.025 Urine Protein 1+ H Urine Glucose (UA) Negative Urine Ketones Negative Urine Blood Negative Urine Nitrite Negative Urine Bilirubin Negative Urine Urobilinogen 2.0 Ur Leukocyte Esterase Negative Urine WBC (Auto) 5 Urine RBC (Auto) 12 Ur Epithelial Cells Rare Hyaline Casts 16 Urine Mucus Many RPR Titer 11/03/18 07:00 WBC RBC Hgb Hct MCV MCH MCHC RDW Plt Count MPV Sodium Potassium Chloride Carbon Dioxide Anion Gap BUN Creatinine Creat Clearance w eGFR Random Glucose Calcium Total Bilirubin AST ALT Alkaline Phosphatase Total Protein Albumin Urine Color Urine Appearance Urine pH Ur Specific [place] Urine Protein Urine Glucose (UA) Urine Ketones Urine Blood Urine Nitrite Urine Bilirubin Urine Urobilinogen Ur Leukocyte Esterase Urine WBC (Auto) Urine RBC (Auto) Ur Epithelial Cells Hyaline Casts Urine Mucus RPR Titer Nonreactive a/p: Alcohol/opioid use disorder: continue detox protocols. d/w pt that he can access prn medications as needed for continued Sx of withdrawal- also d/w nursing staff
--- NOTE | 2018-11-03 13:56 | CONSULT ---
[facility] Psychiatric Consult - Data Date of interview: 11/03/18 Admission source: [facility] Identifying data: Readmission to [facility] for this 33 y/o AA male seeking detoxification treatment on for heroin, marihuana and alcohol dependence. Patient is single,cfather of one, domiciled, unemployed and supported on odd jobs. Substance Abuse History: Confirmed by the patient in this interview. Detailsin current [facility] report : Smoking history: Current every day smoker. Have you smoked in the past 12 months: Yes. Aproximately how many cigarettes per day: 20. Hx Chewing Tobacco Use: No. Initiated information on smoking cessation: Yes. 'Breaking Loose' booklet given: 11/02/18. - Substances Abused. Heroin. Route: Injection. Frequency: Daily. Amount used: 10 BAGS. Age of first use: 28. Date of Last Use: 11/02/18. Alcohol. Route: Oral. Frequency: Daily. Amount used: LIQUOR- 1 PINT, BEER- 12 PACK. Age of first use : 11. Date of Last Use: 11/02/18 Medical History: Patient denies medical problems. Psychiatric History: Patient denies history of psychiatric hospitalizations.He indicates that he has been prescribed seroquel at a substance abuse treatment program in [place]. Reportedly diagnosed with MDD and Anxiety Disorder. No OPD care providers. Has not taken seroquel for one year. Mr Santos denies history of suicide attempts. Physical/Sexual Abuse/Trauma History: Patient denies. Additional Comment: Urine Drug Screen Results: OPI-Opiates. Noted. Mental Status Exam - Mental Status Exam Alert and Oriented to: Time, Place, Person Cognitive Function: Good Patient Appearance: Well Groomed (covered with tattoos : arms, forearms, neck) Mood: Hopeful, Euthymic Affect: Appropriate, Normal Range Patient Behavior: Fatigued, Appropriate, Cooperative Speech Pattern: Clear Voice Loudness: Normal Thought Process: Intact, Goal Oriented Thought Disorder: Not Present Hallucinations: Denies Suicidal Ideation: Denies Homicidal Ideation: Denies Insight/Judgement: Poor Sleep: Poorly, Difficulty falling asleep Appetite: Good Muscle strength/Tone: Normal Gait/Station: Normal Psychiatric Findings - Problem List ([place] 1, 2,3) (1) Opioid dependence with withdrawal Current Visit: Yes Status: Acute (2) Alcohol dependence with uncomplicated withdrawal Current Visit: Yes Status: Acute (3) Cannabis dependence Current Visit: Yes Status: Acute (4) Nicotine dependence Current Visit: Yes Status: Acute Qualifiers: Nicotine product type: cigarettes (5) Substance induced mood disorder Current Visit: Yes Status: Acute (6) Insomnia Current Visit: Yes Status: Acute - Initial Treatment Plan Initial Treatment Plan: Psychoeducation. Sleep hygiene. Detoxification. Seroquel 50 mg po hs. Side effects/benefits are discussed with the patient. Mr Santos is in agreement with this careplan. Observation.
[2018-11-03] MEDS: chlordiazePOXIDE HCL 25 MG CAPSULE PO PRN ×2 (14:04→19:25)
--- NOTE | 2018-11-03 17:04 | EKG ---
Test Reason : Blood Pressure : / mmHG Vent. Rate : 063 BPM Atrial Rate : 063 BPM P-R Int : 158 ms QRS Dur : 086 ms QT Int : 372 ms P-R-T Axes : 059 059 047 degrees QTc Int : 380 ms NORMAL SINUS RHYTHM NORMAL ECG Confirmed by MD SHERRIE, ALEKSANDER ([id number]) on 11/03/2018 5:04:07 PM Referred By: Confirmed By:ALEKSANDER BALDERAS MD
[2018-11-03] MEDS: ACETAMINOPHEN 325 MG TABLET (FP) PO PRN (19:26)
[2018-11-03] MEDS ORDERED: QUEtiapine FUMARATE 100 MG TABLET (FP) PO SCH (22:00)
[2018-11-03] MEDS: QUEtiapine FUMARATE 50 MG TABLET PO SCH (22:09)
[2018-11-03] MEDS: THIAMINE HCL 100 MG TABLET (FP) PO SCH (22:09)
[2018-11-04] MEDS: chlordiazePOXIDE HCL 25 MG CAPSULE PO SCH ×2 (05:12→10:19)
[2018-11-04] MEDS ORDERED: METHADONE HCL 5 MG TABLET (FOR DETOX USE ONLY) PO SCH (10:00)
[2018-11-04] MEDS: PRENATAL VITAMINS W/ FOLIC ACID TABLET (FP) PO SCH (10:09)
[2018-11-04] MEDS: NICOTINE 21 MG/24 HOURS TOPICAL PATCH TD SCH (10:10)
[2018-11-04] MEDS ORDERED: cloNIDine HCL 0.1 MG TABLET PO PRN (10:12)
[2018-11-04] MEDS ORDERED: IBUPROFEN 400 MG TABLET (FP) PO ONE (10:25)
[2018-11-04] MEDS ORDERED: diazePAM 5 MG TABLET PO PRN (10:36)
[2018-11-04] MEDS: FLUTICASONE PROP 0.05% 16 GM NASAL SPRAY NS SCH ×2 (12:14→22:08)
--- NOTE | 2018-11-04 14:06 | PN ---
[facility] CIWA - CIWA Score Nausea/Vomitin-No Nausea/No Vomiting Muscle Tremors: 2 Anxiety: 2 Agitation: 2 Paroxysmal Sweats: 2 Orientation: 0-Oriented Tacttile Disturbances: 0-None Auditory Disturbances: 0-None Visual Disturbances: 0-None Headache: 2-Mild CIWA-Ar Total Score: 10 [facility] COWS - Scale Resting Pulse: 1= [place] 81-100 Sweatin= Chills/Flushing Restless Observation: 1= Difficult to Sit Still Pupil Size: 0= Normal to Room Light Bone or Joint Aches: 1= Mild Discomfort Runny Nose/ Eye Tearin= Nasal Congestion GI Upset > 30mins: 2= Nausea/Diarrhea Tremor Observation of Outstretched Hands: 1= Tremor [place], Not Seen Yawning Observation: 1= 1-2x During Session Anxiety or Irritability: 1=Feels Anxious/Irritable Goose Flesh Skin: 0=Smooth Skin COWS Score: 10 S Progress Note (SOAP) Subjective: Chills, sweating, headache (8-9/10, h/o migraine as per patient), back pain, nasal congestion Objective: 11/04/18 13:56 Last Vital Signs Temp Pulse Resp BP Pulse Ox 98.9 F 93 H 18 130/79 11/04/18 13:47 11/04/18 13:47 11/04/18 13:47 11/04/18 13:47 Laboratory Tests 11/02/18 11/03/18 11/03/18 21:34 07:00 07:00 WBC 4.3 RBC 4.05 Hgb 12.1 Hct 37.0 MCV 91.2 MCH 29.9 MCHC 32.8 RDW 14.0 Plt Count 241 MPV 9.2 Sodium 137 Potassium 4.2 Chloride 100 Carbon Dioxide 26 Anion Gap 11 BUN 16 Creatinine 1.1 Creat Clearance w eGFR > 60 Random Glucose 92 Calcium 8.3 L Total Bilirubin 0.2 AST 14 L ALT 16 Alkaline Phosphatase 55 Total Protein 6.7 Albumin 3.6 Urine Color Dkyellow Urine Appearance Clear Urine pH 5.0 D Ur Specific [place] 1.025 Urine Protein 1+ H Urine Glucose (UA) Negative Urine Ketones Negative Urine Blood Negative Urine Nitrite Negative Urine Bilirubin Negative Urine Urobilinogen 2.0 Ur Leukocyte Esterase Negative Urine WBC (Auto) 5 Urine RBC (Auto) 12 Ur Epithelial Cells Rare Hyaline Casts 16 Urine Mucus Many RPR Titer 11/03/18 07:00 WBC RBC Hgb Hct MCV MCH MCHC RDW Plt Count MPV Sodium Potassium Chloride Carbon Dioxide Anion Gap BUN Creatinine Creat Clearance w eGFR Random Glucose Calcium Total Bilirubin AST ALT Alkaline Phosphatase Total Protein Albumin Urine Color Urine Appearance Urine pH Ur Specific [place] Urine Protein Urine Glucose (UA) Urine Ketones Urine Blood Urine Nitrite Urine Bilirubin Urine Urobilinogen Ur Leukocyte Esterase Urine WBC (Auto) Urine RBC (Auto) Ur Epithelial Cells Hyaline Casts Urine Mucus RPR Titer Nonreactive Labs reviewed: abnormal UA Assessment: 11/04/18 13:57 Withdrawal symptoms Abnormal UA noted Plan: Continue detox Abnormal UA: encouraged PO water intake, repeat UA
[2018-11-04] MEDS ORDERED: diazePAM 5 MG TABLET PO ONE (22:00)
[2018-11-04] MEDS: THIAMINE HCL 100 MG TABLET (FP) PO SCH (22:07)
[2018-11-04] MEDS: QUEtiapine FUMARATE 50 MG TABLET PO SCH (22:07)
[2018-11-04] MEDS ORDERED: chlordiazePOXIDE 5 MG CAPSULE PO SCH (23:00)
[2018-11-05] MEDS ORDERED: METHADONE HCL 10 MG TABLET (FOR DETOX USE ONLY) PO ONE (10:00)
[2018-11-05] MEDS: PRENATAL VITAMINS W/ FOLIC ACID TABLET (FP) PO SCH (10:17)
[2018-11-05] MEDS: FLUTICASONE PROP 0.05% 16 GM NASAL SPRAY NS SCH ×2 (10:17→22:05)
[2018-11-05] MEDS: diazePAM 5 MG TABLET PO SCH ×2 (10:18→22:06)
[2018-11-05] MEDS: NICOTINE 21 MG/24 HOURS TOPICAL PATCH TD SCH (10:19)
[2018-11-05] MEDS ORDERED: ACETAMINOPHEN 325 MG TABLET (FP) PO PRN (11:02)
[2018-11-05] MEDS ORDERED: IBUPROFEN 400 MG TABLET (FP) PO ONE (11:16)
[2018-11-05] MEDS: HYDROCORTISONE 1% TOPICAL CREAM 30 GM TUBE TP SCH ×2 (15:49→22:08)
--- NOTE | 2018-11-05 16:02 | PN ---
[facility] Progress Note (SOAP) Subjective: Anxious, tremor, chills, headache (07/10, states he has migraine). Patient c/o itchy rash to neck x 2 days. Objective: 11/05/18 15:58 Last Vital Signs Temp Pulse Resp BP Pulse Ox 100.3 F H 105 H 17 113/69 11/05/18 13:38 11/05/18 13:38 11/05/18 13:38 11/05/18 13:38 PE: Neck: macular, papular mildly erythemic rash posterior neck Laboratory Tests 11/02/18 11/03/18 11/03/18 21:34 07:00 07:00 WBC 4.3 RBC 4.05 Hgb 12.1 Hct 37.0 MCV 91.2 MCH 29.9 MCHC 32.8 RDW 14.0 Plt Count 241 MPV 9.2 Sodium 137 Potassium 4.2 Chloride 100 Carbon Dioxide 26 Anion Gap 11 BUN 16 Creatinine 1.1 Creat Clearance w eGFR > 60 Random Glucose 92 Calcium 8.3 L Total Bilirubin 0.2 AST 14 L ALT 16 Alkaline Phosphatase 55 Total Protein 6.7 Albumin 3.6 Urine Color Dkyellow Urine Appearance Clear Urine pH 5.0 D Ur Specific [place] 1.025 Urine Protein 1+ H Urine Glucose (UA) Negative Urine Ketones Negative Urine Blood Negative Urine Nitrite Negative Urine Bilirubin Negative Urine Urobilinogen 2.0 Ur Leukocyte Esterase Negative Urine WBC (Auto) 5 Urine RBC (Auto) 12 Ur Epithelial Cells Rare Hyaline Casts 16 Urine Mucus Many RPR Titer 11/03/18 07:00 WBC RBC Hgb Hct MCV MCH MCHC RDW Plt Count MPV Sodium Potassium Chloride Carbon Dioxide Anion Gap BUN Creatinine Creat Clearance w eGFR Random Glucose Calcium Total Bilirubin AST ALT Alkaline Phosphatase Total Protein Albumin Urine Color Urine Appearance Urine pH Ur Specific [place] Urine Protein Urine Glucose (UA) Urine Ketones Urine Blood Urine Nitrite Urine Bilirubin Urine Urobilinogen Ur Leukocyte Esterase Urine WBC (Auto) Urine RBC (Auto) Ur Epithelial Cells Hyaline Casts Urine Mucus RPR Titer Nonreactive Labs reviewed: abnormal UA (reordered, no specimen received) Assessment: 11/05/18 16:00 Withdrawal symptoms Dermatitis to neck noted Plan: Continue detox Encouraged PO water intake Dermatitis: hydrocortisone cream 1% bid to affected area on neck Patient scheduled for discharge tomorrow
[2018-11-05] MEDS ORDERED: IBUPROFEN 600 MG TABLET (FP) PO PRN (17:00)
[2018-11-05] MEDS ORDERED: CYCLOBENZAPRINE HCL 5 MG TABLET PO PRN (19:01)
[2018-11-05] MEDS ORDERED: METHYL SALICYLATE/MENTHOL OINT 30 GM TUBE TP PRN (19:02)
--- NOTE | 2018-11-05 19:10 | PN ---
[facility] Progress Note Note: Pt c/o pain in leg this evening, stating not relieved with pain med- flexeril and topical heather dorsey ordered. Monitor and reevaluate as needed
[2018-11-05] MEDS: THIAMINE HCL 100 MG TABLET (FP) PO SCH (22:05)
[2018-11-05] MEDS: QUEtiapine FUMARATE 50 MG TABLET PO SCH (22:06)
[2018-11-05] MEDS: hydrOXYzine PAMOATE 50 MG CAPSULE (FP) PO PRN (22:06)
[2018-11-05] MEDS ORDERED: chlordiazePOXIDE HCL 10 MG CAPSULE PO SCH (23:00)
[2018-11-06] MEDS ORDERED: METHADONE HCL 5 MG TABLET (FOR DETOX USE ONLY) PO SCH (06:00)
[2018-11-06] MEDS ORDERED: diazePAM 5 MG TABLET PO ONE ×2 (06:00→10:00)
[2018-11-06 09:13] VITALS: BP 117/78; PULSE 72; TEMP 97.1
[2018-11-06] MEDS ORDERED: METHADONE HCL 10 MG TABLET (FOR DETOX USE ONLY) PO SCH (10:00)
[2018-11-06] MEDS: FLUTICASONE PROP 0.05% 16 GM NASAL SPRAY NS SCH (10:21)
[2018-11-06] MEDS: PRENATAL VITAMINS W/ FOLIC ACID TABLET (FP) PO SCH (10:21)
[2018-11-06] MEDS: HYDROCORTISONE 1% TOPICAL CREAM 30 GM TUBE TP SCH (10:22)
[2018-11-06] MEDS: NICOTINE 21 MG/24 HOURS TOPICAL PATCH TD SCH (10:22)
--- NOTE | 2018-11-06 11:03 | DS ---
[facility] Detox Discharge Summary Admission Date: 11/02/18 Discharge Date: 11/06/18 - History Present History: Alcohol Dependence, Opioid Dependence - Physical Exam Results Vital Signs: Vital Signs Temperature 97.1 F L 11/06/18 09:13 Pulse Rate 72 11/06/18 09:13 Respiratory Rate 18 11/06/18 09:13 Blood Pressure 117/78 11/06/18 09:13 O2 Sat by Pulse Oximetry (%) Pertinent Admission Physical Exam Findings: Patient tolerated detox without adverse event. Patient alert and oriented x 3. Skin warm and dry. Ext full ROM, amb ad em, no edema. Pt. denies SI/HI and accepted referral to [facility]. Patient encouraged to complete detox as recommended to prevent relapse. - Treatment Hospital Course: Detox Protocol Followed, Detoxed Safely, Responded well, Discharged Condition Good, Rehab Referral Accepted Patient has Accepted a Rehab Referral to: Patient d/c to [facility] - Medication Discharge Medications: Ambulatory Orders Quetiapine Fumarate [Seroquel -] 100 mg PO BID 10/24/17 Quetiapine Fumarate [Seroquel -] 200 mg PO HS #30 tab 10/25/17 - Diagnosis (1) Alcohol dependence with uncomplicated withdrawal Status: Resolved (2) Opioid dependence with withdrawal Status: Resolved - AMA Did Patient Leave Against Medical Advice: No
[2018-11-07] MEDS ORDERED: METHADONE HCL 5 MG TABLET (FOR DETOX USE ONLY) PO SCH (06:00)
== END 2018-11-06 10:44 | disposition home or self-care (01) | DRG 773 ==
LOC: YASAS 11:58 → Y3N 17:49
PROC: HZ2ZZZZ Detoxification Services for Substance Abuse Treatment (ICD-10-PCS; principal; 2018-11-02)
DX: F11.23 Opioid dependence with withdrawal (principal); F12.20 Cannabis dependence, uncomplicated; F17.210 Nicotine dependence, cigarettes, uncomplicated; F19.24 Other psychoactive substance dependence with psychoactive substance-induced mood disorder; L30.9 Dermatitis, unspecified; R82.90 Unspecified abnormal findings in urine; G47.00 Insomnia, unspecified; R63.4 Abnormal weight loss; Z68.20 Body mass index [BMI] 20.0-20.9, adult
CPT/HCPCS: 36415; 80053; 81003; 81015; 85027; 86593; 93005; 93010